=== PATIENT | male | born 1955 | race Caucasian/White ===

== ENCOUNTER 2017-01-13 21:53 | Emergency (ER) | payer OTHER ==
--- NOTE | 2017-01-13 22:12 | EDPHY ---
H & P Stated Complaint: Abdo cramping for several days. HPI/ROS: HPI CHIEF COMPLAINT: Abdominal pain HISTORY OF PRESENT ILLNESS: This patient very pleasant 61-year-old male, significant past medical history for hyperlipidemia, presents to the emergency room with abdominal pain. Patient tells me that he has had this abdominal pain waxing waning since Thursday. He describes it as crampy in nature. Patient tells me that the abdominal pain is crampy wax and wanes Thursday however today it progressively got worse. He describes it mainly all over his abdomen however worse in the lower abdomen. He also tells me his midline back pain. He has had no vomiting no fever no diarrhea and no black tarry stools. He does tell me that was recently in [place] however did not have any fever diarrhea. He took Cipro I was there. Denies chest pain or shortness of breath denies pleuritic pain. The pain is cramping diffuse across the abdomen and does radiate to his lower back. Past Medical History: Hyperlipidemia Past Surgical History: no recent surgery Social History: Denies daily use of drugs alcohol tobacco products Family History: Noncontributory ROS REVIEW OF SYSTEMS: A comprehensive 10 point review of systems is otherwise negative aside from elements mentioned in the history of present illness. Exam Constitutional triage nursing summary reviewed, vital signs reviewed, awake/ alert. Eyes normal conjunctivae and sclera, EOMI, PERRLA. HENT normal inspection, atraumatic, moist mucus membranes, no epistaxis, neck supple/ no meningismus, no raccoon eyes. Respiratory clear to auscultation bilaterally, normal breath sounds, no respiratory distress, no wheezing. Cardiovascular rate normal, regular rhythm, no murmur, no edema, distal pulses normal. Gastrointestinal soft, mild tenderness palpation diffusely , no rebound, no guarding, normal bowel sounds, no distension, no pulsatile mass. Genitourinary no CVA tenderness. Musculoskeletal no midline vertebral tenderness, full range of motion, no calf swelling, no tenderness of extremities, no meningismus, good pulses, neurovascularly intact. Skin pink, warm, & dry, no rash, skin atraumatic. Neurologic awake, alert and oriented x 3, AAOx3, moves all 4 extremities equally, motor intact, sensory intact, CN II-XII intact, normal cerebellar, normal vision, normal speech. Psychiatric normal mood/affect. Heme/Lymph/Immune no lymphadenopathy. Differential diagnosis includes but is not limited to and in no particular order : Bowel obstruction, appendicitis, gallbladder disease, diverticulitis, colitis , enteritis, perforated viscus, gastritis, GERD, esophagitis, urinary tract infection, pyelonephritis, kidney stones Medical Decision Making: For this patient he will have an IV established receive IV fluid bolus 0.5 mg IV for Dilaudid for pain control, 4 mg IV Zofran for nausea. Check blood work including CBC, electrolytes, lipase, LFTs, patient also had a CT scan abdomen pelvis with IV contrast to help delineate acute abdominal pain. Urinalysis. Re-evaluation: EKG interpretation by me on record in [facility] system. Impression time of EKG 2252, this is sinus rhythm rate of 66 multiple PVCs present. I do not appreciate acute ischemia specifically I do not appreciate ST elevation or significant ST depression. CT scan of the abdomen pelvis with IV contrast The results of the study are negative for acute inflammatory process however there is constipation seen, there is also a indeterminate liver lesion and adrenal nodule that will need further workup outpatient no evidence of acute inflammatory process specifically no appendicitis, colitis, diverticulitis, ruptured AAA or dissection. The study was read by Dr. Marco Caban I viewed the images myself on the PACS system. Ultrasound of the abdomen limited The results of the study are negative for anything acute. I discussed the results of this study with the radiologist Dr. Chong. 1257: re-examination at this time this patient is resting comfortably no acute distress. Abdomen remained soft nontender. Not vomiting. Pain well controlled with IV fluids and IV Dilaudid and IV Zofran. Blood work has been reviewed is unremarkable no evidence of acute pancreatitis, bilirubin normal, LFTs normal, no white count. CT scan reviewed shows no acute inflammatory process does show constipation and multiple incidental findings of nodules. I went over the CT scan results with the at bedside and patient extensively they understand follow-up about these lesions on CT scan. Patient called make appoint with her primary care doctor. On a nonemergent basis I do recommend they get this followed up the next month. I also went over strict return precautions to return to the ER if there is worsening abdominal pain, fever, vomiting. Patient describes a low back pain and diffuse crampy abdominal pain. Given normal blood work, CT scan, ultrasound I do not have a great cause for his abdominal cramping. He understands return to the emergency room if develops worsening symptoms. Also follow up with his primary care doctor. EKG interpretation by me on record in [facility] system. Impression this is a repeat EKG time of EKG 0058 this is sinus rhythm rate of 53. No acute ischemic changes appreciated specifically no ST elevation, ST depression or T-wave abnormalities. Intervals are appropriate. No signs of acute ischemia. 0113: Patient understand return emergency room if there is any worsening symptoms includes worsening abdominal pain, fever, vomiting chest pain or shortness of breath blood in stool. Source: Patient - Personal History Current Tetanus/Diphtheria Vaccine: Yes Tetanus Vaccine Date: 2015 - Medical/Surgical History Hx Asthma: No Hx Chronic Respiratory Disease: No Hx Diabetes: No Hx Cardiac Disease: No Hx Renal Disease: No Hx Cirrhosis: No Hx Alcoholism: No Hx HIV/AIDS: No Hx Splenectomy or Spleen Trauma: No Other PMH: High cholesterol, H-pylori - Social History Smoking Status: Never smoked Constitutional: Initial Vital Signs Temperature (C) 36.8 C 01/13/17 22:06 Heart Rate 68 01/13/17 22:06 Respiratory Rate 18 01/13/17 22:06 Blood Pressure 120/88 H 01/13/17 22:06 O2 Sat (%) 95 01/13/17 22:06 O2 Delivery Mode Nasal Cannula O2 (L/minute) 2 Allergies/Adverse Reactions: No Known Allergies Allergy (Unverified 01/13/17 22:09) Home Medications: Medication Instructions Recorded Lipitor 01/13/17 Ondansetron HCl [Zofran] 4 mg PO Q4-6PRN PRN #10 tablet 01/14/17 Polyethylene Glycol 3350 [Miralax 17 gm PO DAILY #2 pkt 01/14/17 17 gm (*)] Ranitidine HCl [Zantac] 150 mg PO DAILY #10 tablet 01/14/17 Medical Decision Making - Data Points Laboratory Results: Laboratory Results 01/13/17 22:20 01/13/17 22:20 01/14/17 01/13/17 01/13/17 01:00 23:15 23:00 WBC RBC Hgb Hct MCV MCH MCHC RDW Plt Count MPV Neut % (Auto) Lymph % (Auto) [place] % (Auto) Eos % (Auto) Baso % (Auto) Nucleat RBC Rel Count Absolute Neuts (auto) Absolute Lymphs (auto) Absolute Monos (auto) Absolute Eos (auto) Absolute Basos (auto) Absolute Nucleated RBC Immature Gran % Immature Gran # PT INR APTT VBG Lactic Acid 0.7 mmol/L mmol/L (0.7-2.1) Sodium Potassium Chloride Carbon Dioxide Anion Gap BUN Creatinine Estimated GFR Glucose Calcium Total Bilirubin Conjugated Bilirubin Unconjugated Bilirubin AST ALT Alkaline Phosphatase Troponin I Pending Total Protein Albumin Lipase Urine Color YELLOW Urine Appearance CLEAR Urine pH 5.0 (5.0-7.5) Ur Specific [place] 1.011 (1.002-1.030) Urine Protein NEGATIVE (NEGATIVE) Urine Ketones NEGATIVE (NEGATIVE) Urine Blood NEGATIVE (NEGATIVE) Urine Nitrate NEGATIVE (NEGATIVE) Urine Bilirubin NEGATIVE (NEGATIVE) Urine Urobilinogen NEGATIVE EU EU (0.2-1.0) Ur Leukocyte Esterase NEGATIVE (NEGATIVE) Ur Culture Indicated? NOT INDICATED (NI) Urine Glucose NEGATIVE (NEGATIVE) 01/13/17 01/13/17 01/13/17 22:20 22:20 22:20 WBC 5.58 10^3/uL 10^3/uL (3.80-9.50) RBC 5.36 10^6/uL 10^6/uL (4.40-6.38) Hgb 17.0 g/dL g/dL (13.7-17.5) Hct 49.4 % % (40.0-51.0) MCV 92.2 fL fL (81.5-99.8) MCH 31.7 pg pg (27.9-34.1) MCHC 34.4 g/dL g/dL (32.4-36.7) RDW 11.9 % % (11.5-15.2) Plt Count 189 10^3/uL 10^3/uL (150-400) MPV 10.1 fL fL (8.7-11.7) Neut % (Auto) 39.9 % % (39.3-74.2) Lymph % (Auto) 39.8 % % (15.0-45.0) [place] % (Auto) 17.4 % H % (4.5-13.0) Eos % (Auto) 2.0 % % (0.6-7.6) Baso % (Auto) 0.9 % % (0.3-1.7) Nucleat RBC Rel Count 0.0 % % (0.0-0.2) Absolute Neuts (auto) 2.23 10^3/uL 10^3/uL (1.70-6.50) Absolute Lymphs (auto) 2.22 10^3/uL 10^3/uL (1.00-3.00) Absolute Monos (auto) 0.97 10^3/uL H 10^3/uL (0.30-0.80) Absolute Eos (auto) 0.11 10^3/uL 10^3/uL (0.03-0.40) Absolute Basos (auto) 0.05 10^3/uL 10^3/uL (0.02-0.10) Absolute Nucleated RBC 0.00 10^3/uL 10^3/uL (0-0.01) Immature Gran % 0.0 % % (0.0-1.1) Immature Gran # 0.00 10^3/uL 10^3/uL (0.00-0.10) PT 12.3 SEC SEC (12.0-15.0) INR 0.92 (0.83-1.16) APTT 27.7 SEC SEC (23.0-38.0) VBG Lactic Acid Sodium 135 mEq/L mEq/L (134-144) Potassium 4.4 mEq/L mEq/L (3.5-5.2) Chloride 101 mEq/L mEq/L (97-110) Carbon Dioxide 24 mEq/l mEq/l (22-31) Anion Gap 10 mEq/L mEq/L (8-16) BUN 16 mg/dL mg/dL (7-23) Creatinine 1.1 mg/dL mg/dL (0.7-1.3) Estimated GFR > 60 Glucose 108 mg/dL H mg/dL (70-100) Calcium 9.6 mg/dL mg/dL (8.5-10.4) Total Bilirubin 0.7 mg/dL mg/dL (0.1-1.4) Conjugated Bilirubin 0.3 mg/dL mg/dL (0.0-0.5) Unconjugated Bilirubin 0.4 mg/dL mg/dL (0.0-1.1) AST 37 IU/L IU/L (17-59) ALT 41 IU/L IU/L (21-72) Alkaline Phosphatase 42 IU/L IU/L (38-126) Troponin I < 0.012 ng/mL ng/mL (0-0.034) Total Protein 7.9 g/dL g/dL (6.3-8.2) Albumin 4.7 g/dL g/dL (3.5-5.0) Lipase 119.0 IU/L IU/L (23-300) Urine Color Urine Appearance Urine pH Ur Specific [place] Urine Protein Urine Ketones Urine Blood Urine Nitrate Urine Bilirubin Urine Urobilinogen Ur Leukocyte Esterase Ur Culture Indicated? Urine Glucose Medications Given: Discontinued Medications Hydromorphone HCl (Dilaudid) 0.5 mg IVP EDNOW ONE Stop: 01/13/17 22:26 Last Admin: 01/13/17 22:41 Dose: 0.5 mg Hydromorphone HCl (Dilaudid) 1 mg IVP EDNOW ONE Stop: 01/13/17 23:19 Last Admin: 01/13/17 23:24 Dose: 1 mg Sodium Chloride (Ns) 1,000 mls @ 0 mls/hr IV ONCE ONE PRN Reason: Wide Open Stop: 01/13/17 22:26 Last Admin: 01/13/17 22:41 Dose: 1,000 mls Ondansetron HCl (Zofran) 4 mg IVP EDNOW ONE Stop: 01/13/17 22:26 Last Admin: 01/13/17 22:41 Dose: 4 mg Departure - Departure Disposition: Home, Routine, Self-Care Clinical Impression: Abdominal pain Qualifiers: Abdominal location: generalized Qualified Code(s): R10.84 - Generalized abdominal pain Constipation Qualifiers: Constipation type: unspecified constipation type Qualified Code(s): K59.00 - Constipation, unspecified Condition: Good Instructions: Acute Abdominal Pain (ED), Acute Low Back Pain (ED) Additional Instructions: 1. Stay well-hydrated drink lots of fluids. 2. Do not eat spicy fatty greasy foods for the next 2 weeks. 3. Return to the emergency room if you have worsening symptoms includes worsening abdominal pain, fever, vomiting, back pain. 4. please follow up with her primary care doctor about the small findings on her CT scan. You will need an outpatient MRI of her abdomen non emergent. Please schedule this with your primary care doctor over the next month. 5. Do not eat spicy fatty greasy foods do not take ibuprofen or Motrin do not drink coffee for the next 2 weeks 6. I referred you to Gastroenterology if you have ongoing abdominal pain, spasms , could be gastritis vs. ulcer. Referrals: Kimo Morelos MD [Primary Care Provider] - As per Instructions Grey Amaro MD [Medical Doctor] - As per Instructions Prescriptions: Ondansetron HCl [Zofran] 4 mg PO Q4-6PRN PRN #10 tablet PRN Reason: Nausea/Vomiting, Use 1st Polyethylene Glycol 3350 [Miralax 17 gm (*)] 17 gm PO DAILY #2 pkt Ranitidine HCl [Zantac] 150 mg PO DAILY #10 tablet
[2017-01-13] MEDS ORDERED: HYDROmorphONE/DILAUDID 1 MG/ML SYR IVP ONE ×2 (22:25→23:18)
[2017-01-13] MEDS ORDERED: NS 1,000 ML IV ONE (22:25)
[2017-01-13] MEDS ORDERED: ONDANSETRON 4 MG/2 ML VIAL IVP ONE (22:25)
[2017-01-13 22:32] LABS: ADD DIFF? NO; ADD MORPH? NO; ADD SCAN? NO; ATYPICAL LYMPHOCYTE FLAG 10 (0-99); FRAGMENT RBC FLAG 0 (0-99); HEMATOCRIT 49.4 % (40.0-51.0); LEFT SHIFT FLG 0 (0-99); LIPEMIA HEMOLYSIS FLAG 90 (0-99); MEAN CELL HEMOGLOBIN 31.7 pg (27.9-34.1); MEAN CELL HEMOGLOBIN CONCENTR. 34.4 g/dL (32.4-36.7); MEAN CELL VOLUME 92.2 fL (81.5-99.8); MEAN PLATELET VOLUME 10.1 fL (8.7-11.7); PLATELET CLUMPS FLAG 10 (0-99); PLATELET COUNT 189 10^3/uL (150-400); RED BLOOD CELL COUNT 5.36 10^6/uL (4.40-6.38); RED CELL DISTRIBUTION WIDTH 11.9 % (11.5-15.2)
[2017-01-13 22:42] LABS: APTT 27.7 SEC (23.0-38.0); INR 0.92 (0.83-1.16); PROTIME(PATIENT) 12.3 SEC (12.0-15.0)
[2017-01-13 22:43] LABS: ALANINE AMINOTRANSFERASE 41 IU/L (21-72); ALBUMIN 4.7 g/dL (3.5-5.0); ALKALINE PHOSPHATASE 42 IU/L (38-126); ANION GAP 10 mEq/L (8-16); ASPARTATE AMINOTRANSFERASE 37 IU/L (17-59); BILIRUBIN,TOTAL 0.7 mg/dL (0.1-1.4); BILIRUBIN-CONJUGATED 0.3 mg/dL (0.0-0.5); BILIRUBIN-UNCONJUGATED 0.4 mg/dL (0.0-1.1); CALCIUM 9.6 mg/dL (8.5-10.4); CARBON DIOXIDE 24 mEq/l (22-31); CHLORIDE 101 mEq/L (97-110); CREATININE 1.1 mg/dL (0.7-1.3); GLOMERULAR FILTRATION RATE > 60; GLUCOSE 108 mg/dL (70-100); POTASSIUM 4.4 mEq/L (3.5-5.2); SODIUM 135 mEq/L (134-144); TOTAL PROTEIN 7.9 g/dL (6.3-8.2)
--- NOTE | 2017-01-13 22:54 | CPEKG ---
Heart Rate: 66 RR Interval: 909 P-R Interval: 172 QRSD Interval: 84 QT Interval: 404 QTC Interval: 424 P [place]: 63 QRS [place]: 24 T Wave [place]: 39 EKG Severity - ABNORMAL ECG - EKG Impression: SINUS RHYTHM EKG Impression: MULTIPLE VENTRICULAR PREMATURE COMPLEXES EKG Impression: MULT INTERPOLATED VENT PREMATURE COMPLEXES Electronically Signed By: Hima Weller 13-Jan-2017 23:04:11
[2017-01-13] MEDS ORDERED: IOPAMIDOL (ISOVUE-300) 100 ML BTL IV ONE (22:57)
[2017-01-13 23:04] LABS: TROPONIN I < 0.012 ng/mL (0-0.034)
[2017-01-13 23:07] LABS: COLOR YELLOW; LEUKOCYTE ESTERASE,URINE NEGATIVE (NEGATIVE); NITRITE,URINE NEGATIVE (NEGATIVE)
--- NOTE | 2017-01-14 01:00 | CPEKG ---
Heart Rate: 53 RR Interval: 1132 P-R Interval: 156 QRSD Interval: 86 QT Interval: 432 QTC Interval: 406 P [place]: 73 QRS [place]: 7 T Wave [place]: 33 EKG Severity - NORMAL ECG - EKG Impression: SINUS RHYTHM Electronically Signed By: Donna Melchor 14-Jan-2017 13:13:47
[2017-01-14 01:05] VITALS: RESP 16
[2017-01-14 02:09] VITALS: BP 119/62; PULSE 62; TEMP 98.1; O2SAT 93
== END 2017-01-14 02:09 | disposition home or self-care (01) ==
LOC: EEVIPCON 21:53
DX: K59.00 Constipation, unspecified (principal)
CPT/HCPCS: 96374; J1170; J2405; Q9967

== ENCOUNTER → 2017-06-18 | Outpatient (CLI) | payer OTHER | LOC: BMCIMAGING 07:27 | PROVIDERS: ATTEND Family Medicine | DX: R93.2 Abnormal findings on diagnostic imaging of liver and biliary tract (principal) ==